=== PATIENT | female | born 1955 | race Caucasian/White ===

== ENCOUNTER 2019-09-02 10:02 | Day surgery (SDC) | payer OTHER ==
[2019-09-02] MEDS ORDERED: fentaNYL 0.05 MG/ML VIAL ONE (12:41)
[2019-09-02] MEDS ORDERED: LIDOCAINE 2% 1000 MG/50 ML VIAL INJ ONE (12:42)
== END 2019-09-02 14:00 | disposition home or self-care (01) ==
LOC: MOR 10:02 → MMU 10:09 → MOR 14:00
PROVIDERS: ATTEND Internal Medicine Gastroenterology
DX: K76.0 Fatty (change of) liver, not elsewhere classified (principal); E66.9 Obesity, unspecified; E78.00 Pure hypercholesterolemia, unspecified
CPT/HCPCS: 47000; 76942; J2001; Q0092; J3010

== ENCOUNTER 2020-12-25 06:20 | Day surgery (SDC) | payer OTHER ==
[~2020-12-25] VITALS: Ht 152.4 cm; Wt 86.2 kg
[2020-12-25 06:56] LABS: BASOPHILS % (AUTO) 0.6 % (0.0-2.0); EOSINOPHILS # (AUTO) 0.3 K/uL (0-0.4); EOSINOPHILS % (AUTO) 4.3 % (0.0-4.0); HEMATOCRIT 43.2 % (36-48); HEMOGLOBIN 14.7 g/dL (12.0-16.0); LYMPHOCYTES # (AUTO) 2.7 K/uL (2.5-16.5); MEAN CORPUSCULAR HEMOGLOBIN 33 pg (27-31); MEAN CORPUSCULAR HGB CONC 34 g/dL (33-37); MEAN CORPUSCULAR VOLUME 95.5 fL (80-94); MONOCYTES # (AUTO) 0.6 K/uL (0.8-1.0); NEUTROPHILS # (AUTO) 3.1 K/uL (1.8-7.7); NEUTROPHILS % (AUTO) 46.1 % (42.2-75.2); PLATELET COUNT (AUTO) 207 K/uL (140-450); RED BLOOD CELL COUNT(AUTO) 4.52 MIL/uL (4.20-5.40); RED CELL DISTRIBUTION WIDTH 13.9 % (11.6-13.7); WHITE BLOOD COUNT (AUTO) 6.7 K/uL (4.8-10.8)
[2020-12-25 07:12] LABS: PROTHROMBIN TIME 9.9 secs (10.8-13.4)
[2020-12-25] MEDS ORDERED: LIDOCAINE 2% 1000 MG/50 ML VIAL INJ ONE (07:33)
== END 2020-12-25 11:15 | disposition home or self-care (01) ==
LOC: MDS 06:20 → MMU 06:21 → MDS 11:15
PROVIDERS: ATTEND Internal Medicine Gastroenterology
DX: K75.81 Nonalcoholic steatohepatitis (NASH) (principal); Z20.822 Contact with and (suspected) exposure to COVID-19
CPT/HCPCS: 36415; 47000; 76942; 85025; 85610; 85730; 87426; J2001